=== PATIENT | female | born 1940 | race Caucasian/White ===

== ENCOUNTER 2018-12-08 10:59 | Inpatient (IN) | payer BC ==
--- NOTE | 2018-12-08 11:47 | PDOC ---
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 Per the patient, she states she has been having worsening SOB for the past 3 weeks requiring increase use of nebulizer (denies home O2 use). She states she has had a cough that has been persistent with black production that has been ongoing for 8 days. In addition, she developed pleuritic upper back pain bilaterally throughout the 3 weeks that is sharp in nature, 5/10, worsens with deep breathing and coughs, and is non radiating. Per the patient, she denies lower extremity swelling. She has been on 20 mg of prednisone for the past 3 weeks. Denies chest pain and a stress test (had a previous echo unknown yr that was normal). Denies sick contacts and recent travel. Denies the following: fever, chills, ears/nose/throat pain, nausea, vomiting, abdominal pain, dysuria, hematuria, diarrhea, melena, hematochezia, hx of PE/DVT, hx of recent surgeries , and use of anti-coagulants. Shx None Allergies: meperidine, morphine Meds: prednisone, atorvastatin, hctz, advair, spiriva Social: Denies tobacco, alcohol, and substance abuse. Past History - Past Medical History Allergies/Adverse Reactions: Allergies Allergy/AdvReac Type Severity Reaction Status Date / Time meperidine HCl [From Demerol] Allergy Intermediate Hallucinate Verified 08:44 morphine Allergy Hallucinate Verified 12/09/18 08:44 s Home Medications: Ambulatory Orders Albuterol Sulfate Inhaler - [Ventolin HFA Inhaler -] 1 - 2 inh PO QID PRN Tiotropium On[place] [Spiriva] 1 inh PO DAILY 12/08/18 Albuterol 2.5/Ipratropium 0.5 [Duoneb -] 1 amp NEB RQID amp 12/11/18 Aspirin Coated [Ecotrin -] 81 mg PO DAILY tablet.ec 12/11/18 Azithromycin 500 mg PO DAILY #3 tablet 12/11/18 Guaifenesin Dm [Robitussin Dm -] 10 ml PO Q4H PRN #1 bot 12/11/18 Pantoprazole Sodium 40 mg PO DAILY #30 tablet. 12/11/18 Prednisone 10 mg PO ASDIR #30 tab 12/11/18 Asthma: Yes Cancer: Yes (UTERINE CANCER) COPD: Yes Disorders: Yes (STONES) Hypercholesterolemia: Yes - Surgical History Appendectomy: Yes - Suicide/Smoking/Psychosocial Hx Smoking History: Former smoker Have you smoked in the past 12 months: No If you are a former smoker, when did you quit?: 11 YEARS Information on smoking cessation initiated: No Hx Alcohol Use: No Drug/Substance Use Hx: No Review of Systems - Review of Systems Able to Perform ROS?: Yes Is the patient limited Irish proficient: No Constitutional: No: Chills, Diaphoresis, Fever HEENTM: No: Eye Pain, Recent change in vision, Ear Pain, Throat Swelling, Mouth Pain Respiratory: Yes: Cough, Shortness of Breath. No: SOB with Exertion, Hemoptysis Cardiac (ROS): No: Chest Pain, Lightheadedness, Palpitations, Syncope, Chest Tightness ABD/GI: No: Constipated, Diarrhea, Nausea, Poor Appetite, Poor Fluid Intake, Rectal Bleeding, Vomiting, Tarry Stools : No: Burning, Dysuria, Hematuria, Urgency Musculoskeletal: No: Back Pain, Joint Pain, Neck Pain Integumentary: No: Lesions, Lumps, Pallor, Pruritus, Rash, Sweating Neurological: No: Headache, Numbness, Tremors, Weakness, Ataxia, Dizziness Psychiatric: No: Change in Appetite Endocrine: No: Unexplained Weight Loss Hematologic/Lymphatic: No: Anemia *Physical Exam - Vital Signs Last Vital Signs Temp Pulse Resp BP Pulse Ox 98.2 F 120 H 20 103/68 98 12/08/18 11:13 12/08/18 11:13 12/08/18 11:13 12/08/18 11:13 12/08/18 11:13 - Physical Exam General Appearance: Yes: Nourished, Appropriately Dressed. No: Apparent Distress, Intoxicated HEENT: positive: EOMI, YAMEL, Normal Voice, Symmetrical, Pharynx Normal, Hearing Grossly Normal. negative: Pale Conjunctivae, Scleral Icterus (R), Scleral Icterus (L), Muffled/Hoarse voice, Pharyngeal Erythema, Tonsillar Exudate, Tonsillar Erythema, Nasal Congestion, Rhinorrhea, Sinus Tenderness, Excessive drooling Neck: positive: Trachea midline. negative: Tender Respiratory/Chest: positive: Rapid RR, Wheezing (expiratory bilaterally). negative: Chest Tender, Lungs Clear, Normal Breath Sounds, Respiratory Distress , Accessory Muscle Use, Crackles, Rales, Rhonchi, Stridor, Hyperresonant Cardiovascular: positive: Regular Rhythm, S1, S2, Tachycardia. negative: Systolic Murmur Gastrointestinal/Abdominal: positive: Normal Bowel Sounds, Flat, Soft. negative : Tender Lymphatic: negative: Adenopathy Musculoskeletal: positive: Normal Inspection, Other (right rhomboid tenderness with palpation). negative: CVA Tenderness, Vertebral Tenderness Extremity: positive: Normal Capillary Refill, Normal Inspection, Normal Range of Motion. negative: Tender, Swelling, Calf Tenderness Integumentary: positive: Normal Color, Dry, Warm. negative: Pale, Clammy, Diaphoresis, Rash, Swelling Neurologic: positive: ssis developer II-XII NML intact, Fully Oriented, Alert, Normal Mood/ Affect, Normal Response, Motor Strength 5/5. negative: EOM Palsy, Facial Droop , Sensory Deficit Moderate Sedation - Procedure Monitoring Vital Signs: Procedure Monitoring Vital Signs Temperature 98.2 F 12/08/18 11:13 Pulse Rate 120 H 12/08/18 11:13 Respiratory Rate 20 12/08/18 11:13 Blood Pressure 103/68 12/08/18 11:13 O2 Sat by Pulse Oximetry (%) 98 12/08/18 11:13 Heart Score/ECG Review - ECG Intrepretation Comment:: ventricular rate is 93 bpm, [place] is 124 ms, QTc is 402 ms. QRS is 84 ms. Sinus rhythm with atrial complexes. No ST elevation or depression noted. 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 Initial vitals" Initial Vital Signs Temp Pulse Resp BP Pulse Ox 98.2 F 120 H 20 103/68 98 12/08/18 11:13 12/08/18 11:13 12/08/18 11:13 12/08/18 11:13 12/08/18 11:13 Work up" ddx: copd exacerbation vs CHF vs ACS vs URI vs PNA Laboratory Tests 12/08/18 12/08/18 12:31 12:40 WBC 14.3 H RBC 4.29 Hgb 12.1 Hct 37.5 MCV 87.5 MCH 28.3 MCHC 32.3 RDW 14.5 Plt Count 270 MPV 8.4 Absolute Neuts (auto) 13.2 H Neutrophils % 92.3 H Neutrophils % (Manual) 96.0 H Band Neutrophils % 0.0 Lymphocytes % 5.7 L Lymphocytes % (Manual) 2.0 L Monocytes % 1.7 L Monocytes % (Manual) 2 L Eosinophils % 0.0 Eosinophils % (Manual) 0.0 Basophils % 0.3 Basophils % (Manual) 0.0 Myelocytes % (Man) 0 Promyelocytes % (Man) 0 Blast Cells % (Manual) 0 Nucleated RBC % 0 Metamyelocytes 0 Hypochromia 0 Platelet Estimate Normal Polychromasia 0 Poikilocytosis 0 Anisocytosis 0 Microcytosis 0 Macrocytosis 0 Sodium 135 L Potassium 3.5 Chloride 95 L Carbon Dioxide 31 Anion Gap 9 BUN 18 Creatinine 1.0 Creat Clearance w eGFR 53.35 Random Glucose 147 H Calcium 9.0 Total Bilirubin 0.6 AST 14 L ALT 16 Alkaline Phosphatase 109 Creatine Kinase 58 Troponin I < 0.02 B-Natriuretic Peptide 403.4 Total Protein 7.4 Albumin 3.4 leukocytosis. cxr shows no acute process. patient was given duoneb, antibiotics and solumedrol. will admit for COPD exacerbation. Dispo: Admit *DC/Admit/Observation/Transfer Diagnosis at time of Disposition: COPD exacerbation - Prescriptions - Referrals - Patient Instructions - Post Discharge Activity
[2018-12-08] MEDS ORDERED: MAGNESIUM SULF 50% (8.12 MEQ/2 ML-1 GM VIAL) IVPB ONE (12:06)
[2018-12-08] MEDS ORDERED: methylPREDNISolone NA SUCC 125 MG/2 ML VIAL IVPB ONE (12:06)
[2018-12-08] MEDS ORDERED: ALBUTEROL SO4 2.5/IPRATROPIUM 0.5 INH SOL 3 ML VIAL.NEB. NEB ONE ×2 (12:06→12:13)
[2018-12-08] MEDS ORDERED: MAGNESIUM 1GM/D5W - 2 GM/200 ML IVPB IVPB ONE (12:14)
[2018-12-08] MEDS ORDERED: methylPREDNISolone NA SUCC 125 MG/2 ML VIAL ONE (12:14)
[2018-12-08] MEDS ORDERED: AZITHROMYCIN IVPB 500 MG in DEXTROSE 5%-WATER - 250 ML IVPB ONE (12:15)
--- NOTE | 2018-12-08 12:36 | PDOC ---
Attending Attestation - Resident Resident Name: IsaacCarlos A - ED Attending Attestation I have performed the following: I have examined & evaluated the patient, The case was reviewed & discussed with the resident, I agree w/resident's findings & plan - HPI HPI: 12/08/18 12:33 78-year-old female with history of COPD presents from Dr. Ron's office for follow-up visit of COPD exacerbation that has been worsening for the past 2 or 3 weeks, associated with cough productive of dark sputum, started on steroids without improvement and has been worsening more so over the last few days. Was found to be in acute hypoxic respiratory distress in the office today, referred for admission. Bilateral lung pain that is pleuritic, no fevers or chills or night sweats, denies any chest pain or palpitations. - Physicial Exam PE: 12/08/18 12:34 Tachycardia at triage, 90 on nebulizer seated in stretcher Still tachypnea, afebrile with a normalized O2 sat on nebulizer Oropharynx clear, no stridor Heart is regular slight tachycardia, lungs have diffuse expiratory wheezing with prolonged expiration, no focally decreased breath sounds Abdomen benign No edema or calf tenderness - Medical Decision Making 12/08/18 12:35 78-year-old female with COPD exacerbation in the setting of cough has been worsening for 3 weeks, not improving on oral steroid course at home. Acute hypoxic respiratory distress, rule out underlying infectious process such as pneumonia. Labs, EKG Chest x-ray IV steroids, nebulizers, antibiotics Admit Heart Score/ECG Review #1 ECG reviewed & interpreted by me at: 13:17 General ECG Interpretation: Sinus Rhythm (with single PVC), Normal Rate (93), Normal Intervals (qtc 402, ? LPFB), No acute ischemic changes
[2018-12-08 12:44] LABS: BASO % 0.3 % (0-2.0); HEMATOCRIT 37.5 % (32.4-45.2); HEMOGLOBIN 12.1 GM/dL (10.7-15.3); LYMPH % 5.7 % (8-40); MCH 28.3 pg (25.7-33.7); MCHC 32.3 g/dl (32.0-36.0); MEAN CELL VOLUME 87.5 fl (80-96); MEAN PLT VOLUME 8.4 fl (7.5-11.1); MONO % 1.7 % (3.8-10.2); NEUT % 92.3 % (42.8-82.8); PLATELET COUNT 270 K/MM3 (134-434); RBC 4.29 M/mm3 (3.60-5.2); RDW 14.5 % (11.6-15.6); WHITE BLOOD COUNT 14.3 K/mm3 (4.0-10.0)
[2018-12-08 13:17] LABS: ALBUMIN 3.4 g/dl (3.4-5.0); ALK PHOS 109 U/L (45-117); ANION GAP 9 MMOL/L (8-16); BILIRUBIN,TOTAL 0.6 mg/dL (0.2-1); BLOOD UREA NITROGEN 18 mg/dL (7-18); CHLORIDE 95 mmol/L (98-107); CO2 31 mmol/L (21-32); GLUCOSE,RANDOM 147 mg/dL (74-106); N-TERMINAL BNP 403.4 pg/ml (5-450); POTASSIUM 3.5 mmol/L (3.5-5.1); SGOT/AST 14 U/L (15-37); SGPT/ALT 16 U/L (13-61); SODIUM 135 mmol/L (136-145); TOT PROT 7.4 g/dl (6.4-8.2)
[2018-12-08] MEDS ORDERED: AZITHROMYCIN IVPB 500 MG/250 ML BAG IVPB ONE (13:41)
--- NOTE | 2018-12-08 14:33 | PN ---
Progress Note (short form) - Note Progress Note: PULMONARY CONSULTATION DICTATED 12/08/18 IMP ACUTE HYPOXEMIC RESPIRATORY FAILURE COPD EXACERBATION CHEST PAIN URI PLAN IV STEROIDS INHALED BRONCHODILATORS O2 TO MAINTAIN O2 SAT 90% OR GREATER CHEST CT ABX DR LE Problem List - Problems (1) Acute hypoxemic respiratory failure Code(s): J96.01 - ACUTE RESPIRATORY FAILURE WITH HYPOXIA (2) COPD exacerbation Code(s): J44.1 - CHRONIC OBSTRUCTIVE PULMONARY DISEASE W (ACUTE) EXACERBATION (3) Chest pain Code(s): R07.9 - CHEST PAIN, UNSPECIFIED
[2018-12-08] MEDS ORDERED: ALBUTEROL SO4 0.083% IH SOL 2.5 MG/3 ML VIAL.NEB. NEB PRN (14:37)
[2018-12-08 14:39] LABS: ANISOCYTOSIS 0; MACROCYTOSIS 0; PLATELET ESTIMATE NORMAL
[2018-12-08] MEDS: methylPREDNISolone NA SUCC 40 MG/1 ML VIAL IVPUSH SCH ×2 (15:09→21:00)
--- NOTE | 2018-12-08 15:12 | CONS ---
DATE OF CONSULTATION: 12/08/2018 REFERRING PHYSICIAN: Ramsey Quesada MD The patient is an 78-year-old white female, known to me from previous hospitalization, past medical history of advanced COPD, history of tobacco use, quit 11 years ago, history of uterine CA, admitted to [facility] with 3-week history of increasing shortness of breath, cough, and chest congestion. Patient states for the past 3 weeks, she started noticing increasing shortness of breath and chest congestion. She states that the sputum is productive of ayers sputum. Denies any hemoptysis. The past week or so, she started developing pleuritic upper back pain, sharp in character, increased with inspiration and coughing as well as sneezing. She denies any fevers or chills. She went to Dr. Gtz's office earlier today and was noted to be hypoxic with an O2 saturation in the 80s, at which time she was advised to go to the emergency room. She denies any recent travel. There is no history of occupational exposure to chemicals or fumes. There is no history of DVT or PE in the past. Past medical history, again, includes COPD, uterine CA. SOCIAL HISTORY: History of tobacco use, quit 11 years ago, retired waiter/waitress. REVIEW OF SYSTEMS: Positive shortness of breath, positive cough, positive sputum, positive pleuritic chest pain. No fever, no chills, no hemoptysis, no abdominal pain. No nausea, no vomiting, no lower extremity edema. Medications prior to admission include prednisone, Lipitor, hydrochlorothiazide, Advair, and Spiriva. PHYSICAL EXAMINATION: General: The patient is a well-developed, well-nourished female, awake, alert, currently in no acute distress. Vital Signs: She is afebrile. Blood pressure 103/68. Respiratory rate 20. O2 saturation is 98% on 2 L. HEENT: Normocephalic, atraumatic. Neck: Supple. Heart: Regular, S1, S2. Chest: Scattered bilateral wheezes. Abdomen: Soft. Bowel sounds are positive. Extremities: No cyanosis, edema. LABORATORY DATA: WBC is 14.3, hemoglobin 12.1, hematocrit 37.5, with a platelet count of 270,000. BUN 18, creatinine 1.0. Chest x-ray: No infiltrates and no effusions. IMPRESSION: 1. Acute hypoxemic respiratory failure most likely secondary to acute exacerbation of chronic obstructive pulmonary disease. 2. Chest pain syndrome, most likely musculoskeletal in etiology. 3. History of uterine CA. PLAN: IV steroids, inhaled bronchodilators, supplemental O2, sputum for C&S, antibiotics. Obtain D-dimer, CT scan of the chest without contrast. If elevated D-dimer, will get a CTA. ARIANNE LE M.D. MURIEL/[id number]
[2018-12-08] MEDS ORDERED: ALBUTEROL SO4 2.5/IPRATROPIUM 0.5 INH SOL 3 ML VIAL.NEB. NEB SCH (16:00)
--- NOTE | 2018-12-08 18:09 | EKG ---
Test Reason : Blood Pressure : / mmHG Vent. Rate : 093 BPM Atrial Rate : 093 BPM P-R Int : 124 ms QRS Dur : 084 ms QT Int : 324 ms P-R-T Axes : 074 068 049 degrees QTc Int : 402 ms SINUS RHYTHM WITH PREMATURE ATRIAL COMPLEXES LOW VOLTAGE QRS NONSPECIFIC ST AND T WAVE ABNORMALITY ABNORMAL ECG Confirmed by MD BRIAN, LUPE ([id number]) on 12/08/2018 6:09:37 PM Referred By: Confirmed By:LUPE TORRES MD
--- NOTE | 2018-12-08 18:27 | HP ---
Admitting History and Physical - Admission Chief Complaint: SOB and productive cough worsening over 3 weeks History of Present Illness: Patient is a 78 y/o female with past medical history of COPD. Patient presented to [facility] ED after appointment with pulmonogist Dr. Ron. Patient complain of having productive cough with ayers colored sputum and SOB worsening over 3 weeks. She was started on PO steroids and ABT from PMD but did not feel better. History Source: Patient, Family Member (daughter) Limitations to Obtaining History: No Limitations - Past Medical History Pulmonary: Yes: COPD - Smoking History Smoking history: Former smoker Have you smoked in the past 12 months: No If you are a former smoker, when did you quit?: 11 YEARS - Alcohol/Substance Use Hx Alcohol Use: No - Social History Usual Living Arrangement: Yes: With Spouse ADL: Independent <Vicky Mixon - Last Filed: 12/08/18 19:53> Home Medications <Vicky Mixon - Last Filed: 12/08/18 19:53> <Ramsey Quesada - Last Filed: 12/11/18 21:20> - Allergies Allergies/Adverse Reactions: Allergies Allergy/AdvReac Type Severity Reaction Status Date / Time meperidine HCl [From Demerol] Allergy Intermediate Hallucinate Verified 08:44 morphine Allergy Hallucinate Verified 12/09/18 08:44 s - Home Medications Home Medications: Ambulatory Orders Albuterol Sulfate Inhaler - [Ventolin HFA Inhaler -] 1 - 2 inh PO QID PRN Tiotropium [place] [Spiriva] 1 inh PO DAILY 12/08/18 Albuterol 2.5/Ipratropium 0.5 [Duoneb -] 1 amp NEB RQID amp 12/11/18 Aspirin Coated [Ecotrin -] 81 mg PO DAILY tablet.ec 12/11/18 Azithromycin 500 mg PO DAILY #3 tablet 12/11/18 Guaifenesin Dm [Robitussin Dm -] 10 ml PO Q4H PRN #1 bot 12/11/18 Pantoprazole Sodium 40 mg PO DAILY #30 tablet. 12/11/18 Prednisone 10 mg PO ASDIR #30 tab 12/11/18 Review of Systems - Review of Systems Constitutional: reports: No Symptoms Eyes: reports: No Symptoms HENT: reports: No Symptoms Neck: reports: No Symptoms Cardiovascular: reports: No Symptoms Respiratory: reports: Cough (productive with ayers sputum), SOB Gastrointestinal: reports: No Symptoms Genitourinary: reports: No Symptoms Breasts: reports: No Symptoms Reported Musculoskeletal: reports: No Symptoms Integumentary: reports: No Symptoms Neurological: reports: No Symptoms Endocrine: reports: No Symptoms Hematology/Lymphatic: reports: No Symptoms Psychiatric: reports: No Symptoms <Vicky Mixon - Last Filed: 12/08/18 19:53> Physical Examination Vital Signs: Vital Signs Temperature 97.9 F 12/08/18 16:59 Pulse Rate 93 H 12/08/18 16:59 Respiratory Rate 18 12/08/18 16:59 Blood Pressure 114/59 L 12/08/18 16:59 O2 Sat by Pulse Oximetry (%) 96 12/08/18 16:59 Constitutional: Yes: Well Nourished, Mild Distress Eyes: Yes: Conjunctiva Clear HENT: Yes: Atraumatic Neck: Yes: Supple Cardiovascular: Yes: Regular Rate and Rhythm Respiratory: Yes: On Nasal O2, Wheezes Gastrointestinal: Yes: Normal Bowel Sounds, Soft, Tenderness (epigastric) Musculoskeletal: Yes: WNL Extremities: Yes: WNL Edema: No Integumentary: Yes: WNL Neurological: Yes: Alert, Oriented Psychiatric: Yes: Alert, Oriented Labs: CBC, TORI 12/08/18 12:31 12/08/18 12:40 <Vicky Mixon - Last Filed: 12/08/18 19:53> Vital Signs: Vital Signs Temperature 97.9 F 12/11/18 08:15 Pulse Rate 85 12/11/18 08:15 Respiratory Rate 18 12/11/18 08:15 Blood Pressure 148/92 12/11/18 08:15 O2 Sat by Pulse Oximetry (%) 93 L 12/11/18 09:00 Labs: CBC, TORI 12/09/18 06:30 12/09/18 06:30 <Ramsey Quesada - Last Filed: 12/11/18 21:20> Imaging - Results Chest X-ray: Report Reviewed (No acute chest pathology) EKG: Report Reviewed <Vicky Mixon - Last Filed: 12/08/18 19:53> Problem List - Problems (1) Acute hypoxemic respiratory failure Code(s): J96.01 - ACUTE RESPIRATORY FAILURE WITH HYPOXIA (2) COPD exacerbation Code(s): J44.1 - CHRONIC OBSTRUCTIVE PULMONARY DISEASE W (ACUTE) EXACERBATION (3) Chest pain Code(s): R07.9 - CHEST PAIN, UNSPECIFIED <Vicky Mixon - Last Filed: 12/08/18 19:53> Assessment/Plan -cardiology consult for SOB -Pulm consult for COPD exacerbation -GI consult for epigastric tenderness -albuterol and duoneb tx PRN -IV methylprednisone -O2 via NC, keep SpO2 >90% -regular diet -dvt ppx -OOB to chair as tolerated <Vicky Mixon - Last Filed: 12/08/18 19:53> I HAVE EXAMINED THE ABOVE PATIENT AND I AGREE WITH THIS NOTE <Ramsey Quesada - Last Filed: 12/11/18 21:20>
[2018-12-08 20:34] VITALS: BMI 24.5
[2018-12-09] MEDS: methylPREDNISolone NA SUCC 40 MG/1 ML VIAL IVPUSH SCH ×4 (02:40→21:51)
[2018-12-09 08:06] LABS: HEMATOCRIT 37.7 % (32.4-45.2); HEMOGLOBIN 12.9 GM/dL (10.7-15.3); MCH 29.8 pg (25.7-33.7); MCHC 34.1 g/dl (32.0-36.0); MEAN CELL VOLUME 87.5 fl (80-96); MEAN PLT VOLUME 8.9 fl (7.5-11.1); PLATELET COUNT 299 K/MM3 (134-434); RBC 4.31 M/mm3 (3.60-5.2); RDW 14.9 % (11.6-15.6); WHITE BLOOD COUNT 9.9 K/mm3 (4.0-10.0)
[2018-12-09 08:23] LABS: ALBUMIN 3.6 g/dl (3.4-5.0); ALK PHOS 112 U/L (45-117); ANION GAP 5 MMOL/L (8-16); BILIRUBIN,TOTAL 0.5 mg/dL (0.2-1); BLOOD UREA NITROGEN 26 mg/dL (7-18); CALCIUM 9.3 mg/dL (8.5-10.1); CHLORIDE 98 mmol/L (98-107); CO2 34 mmol/L (21-32); CREATININE 0.9 mg/dL (0.55-1.3); GLUCOSE,RANDOM 120 mg/dL (74-106); POTASSIUM 4.2 mmol/L (3.5-5.1); SGOT/AST 13 U/L (15-37); SGPT/ALT 17 U/L (13-61); SODIUM 137 mmol/L (136-145); TOT PROT 7.8 g/dl (6.4-8.2)
--- NOTE | 2018-12-09 08:33 | PN ---
Progress Note, Physician - Current Medication List Current Medications: Active Medications Albuterol Sulfate (Ventolin 0.083% Nebulizer Soln -) 1 amp NEB Q4H PRN PRN Reason: SHORT OF BREATH/WHEEZING Aspirin (Ecotrin -) 81 mg PO DAILY [facility] Methylprednisolone Sodium Succinate (Solu-Medrol -) 40 mg IVPUSH Q6H-IV [facility] Last Admin: 12/09/18 02:40 Dose: 40 mg Tiotropium [place] (Spiriva Respimat) 2 puff IH DAILY [facility] - Objective Vital Signs: Vital Signs Temperature 97.3 F L 12/09/18 08:30 Pulse Rate 88 12/09/18 08:30 Respiratory Rate 18 12/09/18 08:30 Blood Pressure 135/70 12/09/18 08:30 O2 Sat by Pulse Oximetry (%) 96 12/08/18 16:59 Cardiovascular: Yes: Regular Rate and Rhythm Respiratory: Yes: Diminished, Rhonchi Gastrointestinal: Yes: Normal Bowel Sounds, Soft Labs: CBC, BMP 12/09/18 06:30 12/09/18 06:30 Problem List - Problems (1) COPD exacerbation Assessment/Plan: -IV Steroids -Nebs -Pulm on case Code(s): J44.1 - CHRONIC OBSTRUCTIVE PULMONARY DISEASE W (ACUTE) EXACERBATION (2) Pain in scapula Assessment/Plan: -ekg and CE -Cardiology Code(s): M89.8X1 - OTHER SPECIFIED DISORDERS OF BONE, SHOULDER (3) D-dimer, elevated Assessment/Plan: -CTA Code(s): R79.89 - OTHER SPECIFIED ABNORMAL FINDINGS OF BLOOD CHEMISTRY
[2018-12-09] MEDS ORDERED: PT OWN MED DRAWER 7, Y5N ONE (09:35)
[2018-12-09] MEDS: ASPIRIN COATED 81 MG TABLET.EC PO SCH (09:36)
--- NOTE | 2018-12-09 09:54 | EKG ---
Test Reason : Blood Pressure : / mmHG Vent. Rate : 103 BPM Atrial Rate : 103 BPM P-R Int : 116 ms QRS Dur : 080 ms QT Int : 320 ms P-R-T Axes : 078 076 262 degrees QTc Int : 419 ms SINUS TACHYCARDIA WITH PREMATURE SUPRAVENTRICULAR COMPLEXES LOW VOLTAGE QRS ABNORMAL ECG WHEN COMPARED WITH ECG OF 08-DEC-2018 13:17, INVERTED T WAVES HAVE REPLACED NONSPECIFIC T WAVE ABNORMALITY IN INFERIOR LEADS Confirmed by GABBI VILLAGOMEZ, ERIN ([id number]) on 12/09/2018 9:54:28 AM Referred By: Jennifer NDIAYE Confirmed By:ERIN SEO MD
[2018-12-09] MEDS ORDERED: TIOTROPIUM BROMIDE 2.5 MCG (SPIRIVA) RESPIMAT INHALER IH SCH (10:00)
--- NOTE | 2018-12-09 12:18 | PN ---
Progress Note (short form) - Note Progress Note: I was consulted to evaluate 78 y/o female patient with epigastric pain on palpation. At bedside this morning patient states she is feeling better and would like to hold off on consulting GI for her pain.
--- NOTE | 2018-12-09 14:17 | PN ---
Progress Note (short form) - Note Progress Note: PULMONARY Breathing better but now with cough productive of yellow sputum. No fevers or chills. CT chest showing RLL infiltrate. Vital Signs Period Temp Pulse Resp BP Sys/Maxwell Pulse Ox Last 24 Hr 97.3 F-98.0 F 73-95 18-20 114-158/59-80 96-97 Intake & Output 12/06/18 12/07/18 12/08/18 12/09/18 23:59 23:59 23:59 23:59 Intake Total 250 Balance 250 Weight 64.864 kg Gen: NAD at rest Heart: RRR Lung: scattered rhonchi, right basilar rales Abd: soft, nontender Ext: no edema CBC, BMP 12/09/18 06:30 12/09/18 06:30 Active Medications Albuterol Sulfate (Ventolin 0.083% Nebulizer Soln -) 1 amp NEB Q4H PRN PRN Reason: SHORT OF BREATH/WHEEZING Aspirin (Ecotrin -) 81 mg PO DAILY [facility] Last Admin: 12/09/18 09:36 Dose: 81 mg Methylprednisolone Sodium Succinate (Solu-Medrol -) 40 mg IVPUSH Q6H-IV [facility] Last Admin: 12/09/18 08:37 Dose: 40 mg Tiotropium [place] (Spiriva Respimat) 2 puff IH DAILY [facility] Last Admin: 12/09/18 09:36 Dose: 2 puff A/P Acute COPD Exacerbation RLL Pneumonia - continue medrol at current dose - inhaled bronchodilators standing and PRN - O2 to keep SpO2 >90% - will start antibiotics - DVT prophylaxis
[2018-12-09] MEDS ORDERED: DEXTROSE 5%-WATER - 50 ML IVPB ONE (14:51)
[2018-12-09] MEDS ORDERED: cefTRIAXone SODIUM 1 GM VIAL ONE (14:51)
[2018-12-09] MEDS: ENOXAPARIN NA (PORCINE) 40 MG/0.4 ML DISP.SYRIN SQ SCH (14:55)
[2018-12-09] MEDS: CEFTRIAXONE 1 GM in DEXTROSE 5%-WATER - 50 ML IVPB SCH (14:55)
[2018-12-09] MEDS ORDERED: PANTOPRAZOLE SODIUM 40 MG in SODIUM CHLORIDE 100 ML IVPB SCH (14:59)
[2018-12-09] MEDS: ALBUTEROL SO4 2.5/IPRATROPIUM 0.5 INH SOL 3 ML VIAL.NEB. NEB SCH ×2 (15:01→21:10)
[2018-12-09] MEDS ORDERED: BENZOCAINE/MENTH/CETYLPYRD CL 1 EACH LOZENGE MM PRN (15:02)
[2018-12-09] MEDS ORDERED: guaiFENesin/D-METHORPHAN HB 10 ML UNIT-DOSE CUPS PO PRN (15:02)
--- NOTE | 2018-12-09 15:04 | PN ---
Progress Note, Physician Chief Complaint: RLL pneumonia COPD exacerbation History of Present Illness: NAD Breathing better still coughing Seen by Pulmonary was complaining of epigastric pain yesterday, which improved- joeyley 2/2 to steroids- should be on PPI-will start Started on IV abx - Current Medication List Current Medications: Active Medications Albuterol Sulfate (Ventolin 0.083% Nebulizer Soln -) 1 amp NEB Q4H PRN PRN Reason: SHORT OF BREATH/WHEEZING Albuterol/Ipratropium (Duoneb -) 1 amp NEB RQID [facility] Aspirin (Ecotrin -) 81 mg PO DAILY [facility] Last Admin: 12/09/18 09:36 Dose: 81 mg Enoxaparin Sodium (Lovenox -) 40 mg SQ DAILY [facility] Last Admin: 12/09/18 14:55 Dose: 40 mg Ceftriaxone Sodium 1 gm/ (Dextrose) 50 mls @ 100 mls/hr IVPB DAILY [facility] Last Admin: 12/09/18 14:55 Dose: 100 mls/hr Azithromycin (Zithromax 500mg Ivpb (Pre-Docked)) 500 mg in 250 mls @ 250 mls/ hr IVPB DAILY [facility] Methylprednisolone Sodium Succinate (Solu-Medrol -) 40 mg IVPUSH Q6H-IV [facility] Last Admin: 12/09/18 14:55 Dose: 40 mg - Objective Vital Signs: Vital Signs Temperature 98.6 F 12/09/18 14:52 Pulse Rate 80 12/09/18 14:52 Respiratory Rate 18 12/09/18 14:52 Blood Pressure 121/72 12/09/18 14:52 O2 Sat by Pulse Oximetry (%) 97 12/09/18 09:00 Constitutional: Yes: Well Nourished, No Distress, Calm Cardiovascular: Yes: Regular Rate and Rhythm Respiratory: Yes: On Nasal O2, SOB on Exertion Gastrointestinal: Yes: Normal Bowel Sounds, Soft Musculoskeletal: Yes: WNL Extremities: Yes: WNL Edema: No Peripheral Pulses WNL: Yes Neurological: Yes: Alert, Oriented Psychiatric: Yes: Alert, Oriented Labs: CBC, BMP 12/09/18 06:30 12/09/18 06:30 Problem List - Problems (1) Pneumonia Assessment/Plan: -on CT chest -Seen by pulmonary -IV medrol -IV abx -afebrile -no leukocytosis -bronchodilators -Robitussin DM PRN -Cepacol lozenges Code(s): J18.9 - PNEUMONIA, UNSPECIFIED ORGANISM (2) COPD exacerbation Assessment/Plan: -on CT chest -Seen by pulmonary -IV medrol -IV abx -afebrile -no leukocytosis -bronchodilators -Robitussin DM PRN -Cepacol lozenges Code(s): J44.1 - CHRONIC OBSTRUCTIVE PULMONARY DISEASE W (ACUTE) EXACERBATION Assessment/Plan See problem list DVT prophylaxis PPI
--- NOTE | 2018-12-09 15:11 | CON.CARD ---
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 She states she has been having worsening SOB for the past 3 weeks requiring increase use of nebulizer. She denied chest pain presently but did state that she had "rib pain" and back pain secondary to coughing. EKG from 12/09/18 showed Sinus Tach at [address] depressions in the inferior leads. These are new compared with the previous EKG. - Past Medical History Pulmonary: Yes: COPD - Alcohol/Substance Use Hx Alcohol Use: No - Smoking History Smoking history: Former smoker Have you smoked in the past 12 months: No If you are a former smoker, when did you quit?: 11 YEARS - Social History ADL: Independent Home Medications - Allergies Allergies/Adverse Reactions: Allergies Allergy/AdvReac Type Severity Reaction Status Date / Time meperidine HCl [From Demerol] Allergy Intermediate Hallucinate Verified 08:44 morphine Allergy Hallucinate Verified 12/09/18 08:44 s - Home Medications Home Medications: Ambulatory Orders Albuterol Sulfate Inhaler - [Ventolin Hfa Inhaler -] 1 - 2 inh PO QID PRN Prednisone 10 mg PO DAILY 12/08/18 Tiotropium [place] [Spiriva] 1 inh PO DAILY 12/08/18 Vital Signs: Vital Signs Temperature 98.6 F 12/09/18 14:52 Pulse Rate 80 12/09/18 14:52 Respiratory Rate 18 12/09/18 14:52 Blood Pressure 121/72 12/09/18 14:52 O2 Sat by Pulse Oximetry (%) 97 12/09/18 09:00 Constitutional: Yes: No Distress Eyes: Yes: WNL HENT: Yes: WNL Neck: Yes: WNL Respiratory: Yes: CTA Bilaterally Gastrointestinal: Yes: Normal Bowel Sounds Cardiovascular: Yes: Regular Rate and Rhythm (NL S1S2 no MRHG) Extremities: Yes: WNL Edema: No Neurological: Yes: Alert, Oriented - Other Data Labs, Other Data: CBC, BMP 12/09/18 06:30 12/09/18 06:30 Troponin, BNP 12/09/18 12/09/18 06:30 12:23 Troponin I < 0.02 < 0.02 Troponin, BNP 12/09/18 12/09/18 06:30 12:23 Troponin I < 0.02 < 0.02 Assessment/Plan 78 year old F with COPD 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 She states she has been having worsening SOB for the past 3 weeks requiring increase use of nebulizer. She denied chest pain presently but did state that she had "rib pain " and back pain secondary to coughing. EKG from 12/09/18 showed Sinus Tach at [address] depressions in the inferior leads. These are new compared with the previous EKG. Chest pain Non cardiac sounding, however todays EKG does have ST depressions in the inferior leads. Trops negative Would obtain an echocardiogram to evaluate wall motion. Continue aspirin. Would continue to trend troponins given EKG change Will follow with you.
--- NOTE | 2018-12-09 15:23 | ECHO ---
Name: PAULA MARISCAL Exam:Adult Echocardiogram Study Date: 12/09/2018 01:39 PM Age: 78 yrs Reason For Study: ABN EKG Height: 64 in Weight: 143 lb BSA: 1.7 m2 MMode/2D Measurements & Calculations IVSd: 0.83 cm Ao root diam: 2.5 cm LVIDd: 5.4 cm LA dimension: 3.6 cm LVIDs: 3.5 cm ACS: 1.5 cm LVPWd: 0.89 cm IVSs: 1.1 cm LVPWs: 0.92 cm EDV(Teich): 139.6 ml ESV(Teich): 50.6 ml Doppler Measurements & Calculations MV E max [place]: 94.0 cm/sec Ao V2 max: 114.8 cm/sec MV A max [place]: 98.2 cm/sec Ao max P.3 mmHg MV E/A: 0.96 Ao V2 mean: 86.0 cm/sec Ao mean P.2 mmHg Ao V2 VTI: 24.2 cm MR max [place]: 369.6 cm/sec TR max [place]: 284.1 cm/sec MR max P.6 mmHg TR max P.3 mmHg Med Peak E' [place]: 5.8 cm/sec Med E/e': 16.3 Lat Peak E' [place]: 5.5 cm/sec Lat E/e': 17.2 Procedure A two-dimensional transthoracic echocardiogram with color flow and Doppler was performed. The study w as technically difficult with many images being suboptimal in quality. Left Ventricle The left ventricular size, thickness and function are normal. The left ventricle is not well visualiz ed. The left ventricular ejection fraction is normal. The transmitral spectral Doppler flow pattern is normal for age. Regional wall motion abnormalities cannot be excluded due to limited visualization. Right Ventricle The right ventricle is not well visualized. Atria The left atrium is mildly dilated. Right atrial size is normal. Mitral Valve There is mild mitral valve thickening. There is no mitral valve stenosis. There is trace to mild mitr al regurgitation. Tricuspid Valve The tricuspid valve is normal in structure and function. There is no tricuspid stenosis. There is Tra ce to mild tricuspid regurgitation. Right ventricular systolic pressure is elevated at 40-50mmHg. Aortic Valve The aortic valve is not well visualized. No hemodynamically significant valvular aortic stenosis. No aortic regurgitation is present. Pulmonic Valve The pulmonic valve is not well visualized. Great Vessels The aortic root is normal size. Pericardium/Pleura Small pericardial effusion (<1cm). Interpretation Summary The study was technically difficult with many images being suboptimal in quality. The left ventricular size, thickness and function are normal The left ventricular ejection fraction is normal. Regional wall motion abnormalities cannot be excluded due to limited visualization. The left atrium is mildly dilated. There is Trace to mild tricuspid regurgitation. Right ventricular systolic pressure is elevated at 40-50mmHg. Small pericardial effusion (<1cm) The left ventricle is not well visualized. The right ventricle is not well visualized. There is trace to mild mitral regurgitation. The transmitral spectral Doppler flow pattern is normal for age. MD Marcos Reese 12/09/2018 03:22 PM
[2018-12-09] MEDS ORDERED: SODIUM CHLORIDE 100 ML IVPB ONE (16:06)
[2018-12-09] MEDS ORDERED: PANTOPRAZOLE SODIUM 40 MG VIAL ONE (16:06)
[2018-12-09] MEDS: AZITHROMYCIN IVPB 500 MG/250 ML BAG IVPB SCH (16:12)
[2018-12-09] MEDS ORDERED: PANTOPRAZOLE SODIUM 40 MG in SODIUM CHLORIDE 100 ML IVPUSH SCH (18:51)
[2018-12-10] MEDS: methylPREDNISolone NA SUCC 40 MG/1 ML VIAL IVPUSH SCH ×3 (03:02→17:45)
[2018-12-10] MEDS: ALBUTEROL SO4 2.5/IPRATROPIUM 0.5 INH SOL 3 ML VIAL.NEB. NEB SCH ×5 (07:35→20:31)
[2018-12-10] MEDS ORDERED: cefTRIAXone SODIUM 1 GM VIAL ONE ×2 (08:57→09:12)
[2018-12-10] MEDS ORDERED: DEXTROSE 5%-WATER - 50 ML IVPB ONE ×2 (08:58→09:12)
[2018-12-10] MEDS: ASPIRIN COATED 81 MG TABLET.EC PO SCH (09:13)
[2018-12-10] MEDS: CEFTRIAXONE 1 GM in DEXTROSE 5%-WATER - 50 ML IVPB SCH (09:13)
[2018-12-10] MEDS: ENOXAPARIN NA (PORCINE) 40 MG/0.4 ML DISP.SYRIN SQ SCH (09:24)
[2018-12-10] MEDS ORDERED: PANTOPRAZOLE SODIUM 40 MG VIAL IVPUSH SCH (10:00)
--- NOTE | 2018-12-10 10:13 | PN ---
Progress Note (short form) - Note Progress Note: PULMONARY Breathing better and chest feels looser. No fevers or chills. Vital Signs Period Temp Pulse Resp BP Sys/Maxwell Pulse Ox Last 24 Hr 97.2 F-98.6 F 74-100 16-20 106-123/63-75 97 Gen: NAD at rest Heart: RRR Lung: less rhonchi, right base rales Abd: soft, nontender Ext: no edema CBC, BMP 12/09/18 06:30 12/09/18 06:30 Active Medications Albuterol Sulfate (Ventolin 0.083% Nebulizer Soln -) 1 amp NEB Q4H PRN PRN Reason: SHORT OF BREATH/WHEEZING Albuterol/Ipratropium (Duoneb -) 1 amp NEB RQID [facility] Last Admin: 12/10/18 07:35 Dose: 1 amp Aspirin (Ecotrin -) 81 mg PO DAILY [facility] Last Admin: 12/10/18 09:13 Dose: 81 mg Benzocaine/Menthol (Cepacol Lozenge -) 1 each MM PRN PRN PRN Reason: SORE THROAT Enoxaparin Sodium (Lovenox -) 40 mg SQ DAILY [facility] Last Admin: 12/10/18 09:24 Dose: 40 mg Guaifenesin (Robitussin Dm -) 10 ml PO Q4H PRN PRN Reason: COUGH Last Admin: 12/09/18 21:51 Dose: 10 ml Ceftriaxone Sodium 1 gm/ (Dextrose) 50 mls @ 100 mls/hr IVPB DAILY [facility] Last Admin: 12/10/18 09:13 Dose: 100 mls/hr Azithromycin (Zithromax 500mg Ivpb (Pre-Docked)) 500 mg in 250 mls @ 250 mls/ hr IVPB DAILY [facility] Last Admin: 12/09/18 16:12 Dose: 250 mls/hr Methylprednisolone Sodium Succinate (Solu-Medrol -) 40 mg IVPUSH Q6H-IV [facility] Last Admin: 12/10/18 09:13 Dose: 40 mg Pantoprazole Sodium (Protonix Iv) 40 mg IVPUSH DAILY [facility] Last Admin: 12/10/18 09:13 Dose: 40 mg A/P Chronic Hypoxic Respiratory Failure Acute COPD Exacerbation RLL Pneumonia - will decrease medrol to q8h - if continues to improve, can likely change steroids to PO prednisone 40mg daily and taper as outpt - inhaled bronchodilators standing and PRN - O2 to keep SpO2 >90% - continue antibiotics, can also change to PO in AM if continues to improve - DVT prophylaxis
[2018-12-10] MEDS: AZITHROMYCIN IVPB 500 MG/250 ML BAG IVPB SCH (10:17)
[2018-12-10] MEDS ORDERED: ALBUTEROL SO4 0.083% IH SOL 2.5 MG/3 ML VIAL.NEB. NEB PRN (11:42)
[2018-12-10] MEDS ORDERED: BENZOCAINE/MENTH/CETYLPYRD CL 1 EACH LOZENGE MM PRN (11:42)
[2018-12-10] MEDS ORDERED: guaiFENesin/D-METHORPHAN HB 10 ML UNIT-DOSE CUPS PO PRN (11:42)
--- NOTE | 2018-12-10 11:55 | EKG ---
Test Reason : Blood Pressure : / mmHG Vent. Rate : 100 BPM Atrial Rate : 100 BPM P-R Int : 114 ms QRS Dur : 076 ms QT Int : 336 ms P-R-T Axes : 073 069 093 degrees QTc Int : 433 ms NORMAL SINUS RHYTHM LOW VOLTAGE QRS NONSPECIFIC ST ABNORMALITY ABNORMAL ECG WHEN COMPARED WITH ECG OF 09-DEC-2018 09:48, PREMATURE SUPRAVENTRICULAR COMPLEXES ARE NO LONGER PRESENT T WAVE INVERSION NO LONGER EVIDENT IN INFERIOR LEADS NONSPECIFIC T WAVE ABNORMALITY, IMPROVED IN LATERAL LEADS Confirmed by TIFFANI ASH MD ([id number]) on 12/10/2018 11:54:42 AM Referred By: Confirmed By:TIFFANI ASH MD
--- NOTE | 2018-12-10 12:13 | PN ---
Progress Note, Physician Chief Complaint: RLL pneumonia COPD exacerbation History of Present Illness: NAD Breathing better still coughing Seen by Pulmonary on IV abx Uses Oxygen at home - Current Medication List Current Medications: Active Medications Albuterol Sulfate (Ventolin 0.083% Nebulizer Soln -) 1 amp NEB Q4H PRN PRN Reason: SHORT OF BREATH/WHEEZING Albuterol/Ipratropium (Duoneb -) 1 amp NEB RQID [facility] Aspirin (Ecotrin -) 81 mg PO DAILY [facility] Benzocaine/Menthol (Cepacol Lozenge -) 1 each MM PRN PRN PRN Reason: SORE THROAT Enoxaparin Sodium (Lovenox -) 40 mg SQ DAILY [facility] Guaifenesin (Robitussin Dm -) 10 ml PO Q4H PRN PRN Reason: COUGH Azithromycin (Zithromax 500mg Ivpb (Pre-Docked)) 500 mg in 250 mls @ 250 mls/ hr IVPB DAILY [facility] Ceftriaxone Sodium 1 gm/ (Dextrose) 50 mls @ 100 mls/hr IVPB DAILY [facility] Methylprednisolone Sodium Succinate (Solu-Medrol -) 40 mg IVPUSH Q8H-IV [facility] Pantoprazole Sodium (Protonix Iv) 40 mg IVPUSH DAILY [facility] - Objective Vital Signs: Vital Signs Temperature 97.8 F 12/10/18 08:32 Pulse Rate 82 12/10/18 08:32 Respiratory Rate 16 12/10/18 08:32 Blood Pressure 112/63 12/10/18 08:32 O2 Sat by Pulse Oximetry (%) 97 12/09/18 21:00 Constitutional: Yes: Well Nourished, No Distress, Calm Cardiovascular: Yes: Regular Rate and Rhythm Respiratory: Yes: Regular, On Nasal O2, Rales (BLL), SOB on Exertion Gastrointestinal: Yes: Normal Bowel Sounds, Soft Musculoskeletal: Yes: WNL Extremities: Yes: WNL Edema: No Peripheral Pulses WNL: Yes Neurological: Yes: Alert, Oriented Psychiatric: Yes: Alert, Oriented Labs: CBC, BMP 12/09/18 06:30 12/09/18 06:30 Problem List - Problems (1) Pneumonia Assessment/Plan: -on CT chest -Seen by pulmonary -IV medrol decreased to Q8H -IV abx -afebrile -no leukocytosis -bronchodilators -Robitussin DM PRN -Cepacol lozenges Code(s): J18.9 - PNEUMONIA, UNSPECIFIED ORGANISM (2) COPD exacerbation Assessment/Plan: -on CT chest -Seen by pulmonary -IV medrol decreased to Q8H -IV abx -afebrile -no leukocytosis -bronchodilators -Robitussin DM PRN -Cepacol lozenges Code(s): J44.1 - CHRONIC OBSTRUCTIVE PULMONARY DISEASE W (ACUTE) EXACERBATION Assessment/Plan See problem list DVT prophylaxis PPI Has O2 at home
--- NOTE | 2018-12-10 16:02 | PN ---
Progress Note, Physician History of Present Illness: ' This is an 78 year old F with COPD presents from her [employer]'s office ( Dr. 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 She states she has been having worsening SOB for the past 3 weeks requiring increase use of nebulizer. She denied chest pain presently but did state that she had "rib pain" and back pain secondary to coughing. EKG from 12/09/18 showed Sinus Tach at [address] depressions in the inferior leads. These are new compared with the previous EKG. EKG 12/10/18 with resolution of the ST changes. 12/10/18 Patient symptomatically improved. - Current Medication List Current Medications: Active Medications Albuterol Sulfate (Ventolin 0.083% Nebulizer Soln -) 1 amp NEB Q4H PRN PRN Reason: SHORT OF BREATH/WHEEZING Albuterol/Ipratropium (Duoneb -) 1 amp NEB RQID [facility] Last Admin: 12/10/18 11:30 Dose: Not Given Aspirin (Ecotrin -) 81 mg PO DAILY [facility] Benzocaine/Menthol (Cepacol Lozenge -) 1 each MM PRN PRN PRN Reason: SORE THROAT Enoxaparin Sodium (Lovenox -) 40 mg SQ DAILY [facility] Guaifenesin (Robitussin Dm -) 10 ml PO Q4H PRN PRN Reason: COUGH Azithromycin (Zithromax 500mg Ivpb (Pre-Docked)) 500 mg in 250 mls @ 250 mls/ hr IVPB DAILY [facility] Ceftriaxone Sodium 1 gm/ (Dextrose) 50 mls @ 100 mls/hr IVPB DAILY [facility] Methylprednisolone Sodium Succinate (Solu-Medrol -) 40 mg IVPUSH Q8H-IV [facility] Pantoprazole Sodium (Protonix Iv) 40 mg IVPUSH DAILY [facility] - Objective Vital Signs: Vital Signs Temperature 98.4 F 12/10/18 15:21 Pulse Rate 86 12/10/18 15:21 Respiratory Rate 18 12/10/18 15:21 Blood Pressure 117/65 12/10/18 15:21 O2 Sat by Pulse Oximetry (%) 97 12/10/18 09:00 Constitutional: Yes: No Distress Eyes: Yes: WNL HENT: Yes: WNL Cardiovascular: Yes: Regular Rate and Rhythm (NL S1 S2, no MRHG) Respiratory: Yes: Diminished (Minimally bilaterally) Gastrointestinal: Yes: Soft Extremities: Yes: WNL Edema: No Neurological: Yes: Alert, Oriented Labs: CBC, BMP 12/09/18 06:30 12/09/18 06:30 Assessment/Plan 78 year old F with COPD presents from her [employer]'s office (Dr. 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 She states she has been having worsening SOB for the past 3 weeks requiring increase use of nebulizer. She denied chest pain presently but did state that she had "rib pain " and back pain secondary to coughing. EKG from 12/09/18 showed Sinus Tach at [address] depressions in the inferior leads. These are new compared with the previous EKG. EKG 12/10/18 with resolution of the ST changes. 12/10/18 Patient symptomatically improved. Chest pain No further episodes Trops negative Echocardiogram noted normal LV function with elevated right sided pressures consistent with COPD Continue aspirin. Can do out patient stress testing with COPD exacerbation has resolved
[2018-12-11] MEDS: methylPREDNISolone NA SUCC 40 MG/1 ML VIAL IVPUSH SCH ×2 (01:44→10:11)
[2018-12-11] MEDS: ALBUTEROL SO4 2.5/IPRATROPIUM 0.5 INH SOL 3 ML VIAL.NEB. NEB SCH ×2 (07:56→11:51)
[2018-12-11] MEDS ORDERED: CEFTRIAXONE 1 GM in DEXTROSE 5%-WATER - 50 ML IVPB SCH (10:00)
[2018-12-11] MEDS ORDERED: AZITHROMYCIN IVPB 500 MG/250 ML BAG IVPB SCH (10:00)
[2018-12-11] MEDS ORDERED: ENOXAPARIN NA (PORCINE) 40 MG/0.4 ML DISP.SYRIN SQ SCH (10:00)
[2018-12-11] MEDS ORDERED: PANTOPRAZOLE SODIUM 40 MG VIAL IVPUSH SCH (10:00)
[2018-12-11] MEDS ORDERED: ASPIRIN COATED 81 MG TABLET.EC PO SCH (10:00)
[2018-12-11] MEDS ORDERED: PT OWN MED DRAWER 7, Y5N ONE (10:05)
[2018-12-11] MEDS ORDERED: DEXTROSE 5%-WATER - 50 ML IVPB ONE (10:05)
[2018-12-11] MEDS ORDERED: cefTRIAXone SODIUM 1 GM VIAL ONE (10:05)
--- NOTE | 2018-12-11 10:44 | PN ---
Progress Note, Physician Chief Complaint: RLL pneumonia COPD exacerbation History of Present Illness: NAD Feeling and breathing much better, self ambulatory Seen by Pulmonary on IV abx Uses Oxygen at home - Current Medication List Current Medications: Active Medications Albuterol Sulfate (Ventolin 0.083% Nebulizer Soln -) 1 amp NEB Q4H PRN PRN Reason: SHORT OF BREATH/WHEEZING Albuterol/Ipratropium (Duoneb -) 1 amp NEB RQID [facility] Last Admin: 12/11/18 07:56 Dose: 1 amp Aspirin (Ecotrin -) 81 mg PO DAILY [facility] Last Admin: 12/11/18 10:07 Dose: 81 mg Benzocaine/Menthol (Cepacol Lozenge -) 1 each MM PRN PRN PRN Reason: SORE THROAT Enoxaparin Sodium (Lovenox -) 40 mg SQ DAILY [facility] Last Admin: 12/11/18 10:12 Dose: 40 mg Guaifenesin (Robitussin Dm -) 10 ml PO Q4H PRN PRN Reason: COUGH Last Admin: 12/11/18 06:37 Dose: 10 ml Azithromycin (Zithromax 500mg Ivpb (Pre-Docked)) 500 mg in 250 mls @ 250 mls/ hr IVPB DAILY [facility] Ceftriaxone Sodium 1 gm/ (Dextrose) 50 mls @ 100 mls/hr IVPB DAILY [facility] Last Admin: 12/11/18 10:07 Dose: 100 mls/hr Methylprednisolone Sodium Succinate (Solu-Medrol -) 40 mg IVPUSH Q8H-IV [facility] Last Admin: 12/11/18 10:11 Dose: 40 mg Pantoprazole Sodium (Protonix Iv) 40 mg IVPUSH DAILY [facility] Last Admin: 12/11/18 10:08 Dose: 40 mg - Objective Vital Signs: Vital Signs Temperature 97.6 F 12/11/18 06:37 Pulse Rate 84 12/11/18 06:37 Respiratory Rate 20 12/11/18 06:37 Blood Pressure 122/80 12/11/18 06:37 O2 Sat by Pulse Oximetry (%) 95 12/10/18 22:00 Constitutional: Yes: Well Nourished, No Distress, Calm Cardiovascular: Yes: Regular Rate and Rhythm Respiratory: Yes: Diminished, On Nasal O2, SOB on Exertion Gastrointestinal: Yes: Normal Bowel Sounds, Soft Musculoskeletal: Yes: WNL Extremities: Yes: WNL Edema: No Peripheral Pulses WNL: Yes Neurological: Yes: Alert, Oriented Psychiatric: Yes: Alert, Oriented Labs: CBC, BMP 12/09/18 06:30 12/09/18 06:30 Problem List - Problems (1) Pneumonia Assessment/Plan: -on CT chest -Seen by pulmonary -IV medrol decreased to Q8H -Received 4 days of rocephin+ 3 days of Azithromycin 500 mg -afebrile -no leukocytosis -bronchodilators -Robitussin DM PRN -Cepacol lozenges Code(s): J18.9 - PNEUMONIA, UNSPECIFIED ORGANISM (2) COPD exacerbation Assessment/Plan: -on CT chest -Seen by pulmonary -IV medrol decreased to Q8H -Received 4 days of rocephin+ 3 days of Azithromycin 500 mg -afebrile -no leukocytosis -bronchodilators -Robitussin DM PRN -Cepacol lozenges Code(s): J44.1 - CHRONIC OBSTRUCTIVE PULMONARY DISEASE W (ACUTE) EXACERBATION Assessment/Plan See problem list DVT prophylaxis PPI Has O2 at home D/C home on tapering dose prednisone+ Cephalosporin if okay with pulmonary
--- NOTE | 2018-12-11 11:45 | PN ---
Progress Note (short form) - Note Progress Note: PULMONARY SUBJECTIVE IMPROVEMENT WANTS TO CONTINUE TREATMENT AN OUTPATIENT VSS/afebrile Gen: NAD at rest Heart: RRR Lung: less rhonchi, right base rales Abd: soft, nontender Ext: no edema labs/meds/notes reviewed A/P Chronic Hypoxic Respiratory Failure/home 02 Acute COPD Exacerbation resolved RLL Pneumonia - change to oral prednisone - continue antibiotics at home - inhaled bronchodilators patient has neb at home - O2 to keep SpO2 >90%/patient has 02 at home - OK to discharge Maile BOLANOS MD
[2018-12-11 12:20] VITALS: BP 148/92; PULSE 85; TEMP 97.9
== END 2018-12-11 14:19 | disposition home or self-care (01) | DRG 193 ==
LOC: JER 10:59 → JERBED 13:09 → J8W 18:21
PROVIDERS: ADMIT Family Medicine; ATTEND Family Medicine
DX: J18.9 Pneumonia, unspecified organism (principal); J96.01 Acute respiratory failure with hypoxia; J44.0 Chronic obstructive pulmonary disease with (acute) lower respiratory infection; J44.1 Chronic obstructive pulmonary disease with (acute) exacerbation; J18.8 Other pneumonia, unspecified organism; E78.00 Pure hypercholesterolemia, unspecified; R00.0 Tachycardia, unspecified; J06.9 Acute upper respiratory infection, unspecified; R07.89 Other chest pain; M89.8X1 Other specified disorders of bone, shoulder; R79.89 Other specified abnormal findings of blood chemistry; Z87.442 Personal history of urinary calculi; Z87.891 Personal history of nicotine dependence; Z85.42 Personal history of malignant neoplasm of other parts of uterus
CPT/HCPCS: 36415; 71046-TC-FY; 71275-TC; 80053; 82550; 83880; 84484; 85025; 85027; 85379; 87899; 93005; 93010; 93306-TC; 94640; 99282-25

== ENCOUNTER 2020-12-28 13:03 | Inpatient (IN) | payer BC, OTHER ==
[2020-12-28] MEDS ORDERED: PROPOFOL 1,000,000 MCG/100 ML VIAL IVPB SCH (13:15)
[2020-12-28] MEDS ORDERED: SODIUM CHLORIDE 0.9% 500 ML INFUS.BAG IV ONE ×2 (13:37→16:22)
[2020-12-28] MEDS ORDERED: DEXMEDETOMIDINE HCL 200 MCG/2 ML IVPB ONE (13:40)
[2020-12-28] MEDS ORDERED: NOREPINEPHRINE BITARTRATE 4 MG/4 ML ML IV ONE ×2 (13:40→13:46)
[2020-12-28] MEDS ORDERED: MIDAZOLAM 100 MG in SODIUM CHLORIDE 100 ML IVPB SCH ×2 (13:45→14:45)
[2020-12-28] MEDS ORDERED: NOREPINEPHRINE BITARTRATE 8,000 MCG/500 ML BAG IVPB SCH (13:45)
[2020-12-28] MEDS ORDERED: DEXMEDETOMIDINE IN 0.9 % NACL 200 MCG/50 ML EACH IVPB SCH (13:45)
[2020-12-28 13:51] LABS: BASO % 0.2 % (0-2.0); EOS % 0.2 % (0-4.5); HEMATOCRIT 36.9 % (32.4-45.2); HEMOGLOBIN 12.1 GM/dL (10.7-15.3); LYMPH % 5.8 % (8-40); MCH 31.2 pg (25.7-33.7); MCHC 32.8 g/dl (32.0-36.0); MEAN CELL VOLUME 95.3 fl (80-96); MEAN PLT VOLUME 8.5 fl (7.5-11.1); MONO % 2.9 % (3.8-10.2); NEUT % 90.9 % (42.8-82.8); PLATELET COUNT 162 K/MM3 (134-434); RBC 3.87 M/mm3 (3.60-5.2); RDW 16.4 % (11.6-15.6)
[2020-12-28 13:57] LABS: INR 0.97 (0.83-1.09)
[2020-12-28] MEDS ORDERED: PIPERACILLIN/TAZOB 3.375 GM 3.375 GM in DEXTROSE 5%-WATER - 50 ML IVPB ONE (13:58)
[2020-12-28 14:00] LABS: ACTIVATED PTT 21.4 SECONDS (25.2-36.5); VENOUS BASE EXCESS 4.4 mmol/L (-2-2); VENOUS O2 SATURATION 99.8 % (70-80); VENOUS PCO2 44.2 mmHg (38-52); VENOUS PH 7.439 (7.310-7.410)
[2020-12-28] MEDS ORDERED: PIPERACILLIN/TAZOB 3.375 GM 3.375 GM/50 ML BAG IVPB ONE (14:06)
[2020-12-28 14:15] LABS: POTASSIUM 3.7 mmol/L (3.5-5.1)
[2020-12-28 14:20] LABS: ALBUMIN 2.8 g/dl (3.4-5.0); BLOOD UREA NITROGEN 32.3 mg/dL (7-18); CALCIUM 7.8 mg/dL (8.5-10.1)
[2020-12-28 14:25] LABS: BILIRUBIN,TOTAL 1.1 mg/dL (0.2-1); CREATININE 0.7 mg/dL (0.55-1.3); TOT PROT 5.4 g/dl (6.4-8.2)
[2020-12-28] MEDS ORDERED: MIDAZOLAM HCL 2 MG/2 ML SINGLE DOSE VIAL IVPUSH ONE (14:28)
[2020-12-28] MEDS ORDERED: MIDAZOLAM 100 MG/100 ML MG IVPB ONE (14:32)
[2020-12-28] MEDS: MIDAZOLAM 100 MG/100 ML MG IVPB SCH (15:22)
[2020-12-28 15:54] LABS: EPI CELLS >36 /uL (0-25.1); HYALINE CASTS 51 /uL (0-3.1); PH,URINE 6.5 (5.0-8.0); URINE APPEARANCE CLOUDY; URINE BACTERIA >9,000 /uL (0-1359); URINE BILIRUBIN NEGATIVE (NEGATIVE); URINE COLOR YELLOW; URINE GLUCOSE (UA) 1+ (NEGATIVE); URINE KETONE NEGATIVE (NEGATIVE); URINE LEUK ESTERASE TRACE (NEGATIVE); URINE NITRITE POSITIVE (NEGATIVE); URINE PROTEIN 2+ (NEGATIVE); URINE RBC 10 /uL (0-23.9); URINE WBC 20 /uL (0-25.8)
[2020-12-28 15:59] LABS: BILIRUBIN,DIRECT 0.4 mg/dL (0.0-0.2)
[2020-12-28] MEDS ORDERED: ALBUTEROL SO4 HFA INHALER IH PRN (16:44)
[2020-12-28] MEDS: DEXAMETHASONE SOD PHOSPHATE 10 MG/1 ML VIAL IVPUSH SCH (18:00)
[2020-12-28] MEDS ORDERED: DEXAMETHASONE SOD PHOSPHATE 10 MG/1 ML VIAL ONE (18:01)
[2020-12-28 19:04] LABS: MAGNESIUM 1.6 mg/dL (1.8-2.4)
[2020-12-28 19:58] LABS: MAGNESIUM 1.5 mg/dL (1.8-2.4)
[2020-12-28] MEDS ORDERED: PANTOPRAZOLE SODIUM 40 MG/100 ML BAG IVPB ONE (20:42)
[2020-12-28] MEDS: FAMOTIDINE 20 MG/50 ML IVPB 20 MG/50 ML MG IVPB SCH (20:52)
[2020-12-28] MEDS ORDERED: DEXMEDETOMIDINE IN 0.9 % NACL 400 MCG/100 ML VIAL IVPB SCH (21:29)
[2020-12-29] MEDS ORDERED: DEXTROSE 50%-WATER - 25 GM/50 ML VIAL IVPUSH ONE ×2 (02:07)
[2020-12-29] MEDS ORDERED: ALBUTEROL SO4 2.5/IPRATROPIUM 0.5 INH SOL 3 ML VIAL.NEB. NEB PRN (07:09)
[2020-12-29 07:45] LABS: BASO % 0.5 % (0-2.0); HEMATOCRIT 39.7 % (32.4-45.2); HEMOGLOBIN 12.8 GM/dL (10.7-15.3); LYMPH % 8.7 % (8-40); MCHC 32.3 g/dl (32.0-36.0); MEAN CELL VOLUME 95.8 fl (80-96); MEAN PLT VOLUME 9.3 fl (7.5-11.1); MONO % 4.5 % (3.8-10.2); NEUT % 86.3 % (42.8-82.8); PLATELET COUNT 146 K/MM3 (134-434); RBC 4.15 M/mm3 (3.60-5.2); RDW 16.6 % (11.6-15.6); WHITE BLOOD COUNT 9.2 K/mm3 (4.0-10.0)
[2020-12-29 07:51] LABS: POTASSIUM 4.4 mmol/L (3.5-5.1)
[2020-12-29 07:59] LABS: BILIRUBIN,TOTAL 1.1 mg/dL (0.2-1)
[2020-12-29 08:00] LABS: TOT PROT 4.8 g/dl (6.4-8.2)
[2020-12-29 08:05] LABS: ALBUMIN 2.5 g/dl (3.4-5.0); BLOOD UREA NITROGEN 34.9 mg/dL (7-18); CALCIUM 7.3 mg/dL (8.5-10.1); CREATININE 0.6 mg/dL (0.55-1.3); MAGNESIUM 1.5 mg/dL (1.8-2.4)
[2020-12-29 08:08] LABS: PHOSPHOROUS 2.9 mg/dL (2.5-4.9)
[2020-12-29] MEDS ORDERED: MAGNESIUM SULF 50% (8.12 MEQ/2 ML-1 GM VIAL) IVPB ONE (08:17)
[2020-12-29] MEDS ORDERED: AZITHROMYCIN IVPB 500 MG/250 ML BAG IVPB SCH (10:00)
[2020-12-29] MEDS: FAMOTIDINE 20 MG/50 ML IVPB 20 MG/50 ML MG IVPB SCH (10:30)
[2020-12-29] MEDS: DEXAMETHASONE SOD PHOSPHATE 10 MG/1 ML VIAL IVPUSH SCH (10:34)
[2020-12-29] MEDS ORDERED: DEXTROSE 5%-WATER - 50 ML IVPB ONE (10:46)
[2020-12-29] MEDS ORDERED: cefTRIAXone SODIUM 1 GM VIAL ONE (10:46)
[2020-12-29] MEDS: CEFTRIAXONE 1 GM in DEXTROSE 5%-WATER - 50 ML IVPB SCH (10:46)
[2020-12-29] MEDS ORDERED: ALBUTEROL SO4 HFA INHALER IH SCH (12:30)
[2020-12-29] MEDS ORDERED: NYSTATIN 100,000 UNIT/GM TOPICAL CREAM 15 GM TUBE TP SCH (12:45)
[2020-12-29] MEDS ORDERED: DOPAMINE HCL 400,000 MCG in SODIUM CHLORIDE 240 ML IV SCH (13:30)
[2020-12-29] MEDS ORDERED: SODIUM CHLORIDE 1,000 ML IV STA (13:34)
[2020-12-29] MEDS ORDERED: DOPAMINE 400 MG/D5W - 400,000 MCG/250 ML INFUS.BAG IVPB ONE (14:12)
[2020-12-29] MEDS ORDERED: VASOPRESSIN 20 UNITS/ML VIAL IV ONE (14:47)
[2020-12-29] MEDS: MIDAZOLAM 100 MG/100 ML MG IVPB SCH (15:32)
[2020-12-29] MEDS: ALBUTEROL SO4 2.5/IPRATROPIUM 0.5 INH SOL 3 ML VIAL.NEB. NEB SCH ×2 (15:50→20:20)
[2020-12-29] MEDS: VASOPRESSIN 40 UNITS in SODIUM CHLORIDE 98 ML IVPB SCH (16:00)
[2020-12-29] MEDS ORDERED: ENOXAPARIN NA (PORCINE) 80 MG/0.8 ML DISP.SYRIN SQ ONE (16:40)
[2020-12-29] MEDS: methylPREDNISolone NA SUCC 40 MG/1 ML VIAL IVPUSH SCH (18:31)
[2020-12-30] MEDS: MIDAZOLAM HCL 5 MG/1 ML Single Dose Vial IVPUSH PRN ×3 (01:49→22:13)
[2020-12-30] MEDS: methylPREDNISolone NA SUCC 40 MG/1 ML VIAL IVPUSH SCH ×3 (01:49→17:03)
[2020-12-30] MEDS: SODIUM CHLORIDE 1,000 ML IV SCH ×2 (01:58→18:37)
[2020-12-30 06:51] LABS: BASO % 0.2 % (0-2.0); HEMATOCRIT 38.8 % (32.4-45.2); HEMOGLOBIN 12.7 GM/dL (10.7-15.3); LYMPH % 4.4 % (8-40); MCH 30.7 pg (25.7-33.7); MCHC 32.6 g/dl (32.0-36.0); MEAN PLT VOLUME 8.9 fl (7.5-11.1); NEUT % 92.4 % (42.8-82.8); PLATELET COUNT 157 K/MM3 (134-434); RBC 4.13 M/mm3 (3.60-5.2); RDW 16.2 % (11.6-15.6); WHITE BLOOD COUNT 12.2 K/mm3 (4.0-10.0)
[2020-12-30 07:14] LABS: POTASSIUM 4.2 mmol/L (3.5-5.1)
[2020-12-30 07:18] LABS: ALBUMIN 2.4 g/dl (3.4-5.0); BLOOD UREA NITROGEN 37.5 mg/dL (7-18)
[2020-12-30 07:19] LABS: CALCIUM 7.5 mg/dL (8.5-10.1)
[2020-12-30 07:21] LABS: CREATININE 0.7 mg/dL (0.55-1.3)
[2020-12-30 07:23] LABS: BILIRUBIN,TOTAL 0.7 mg/dL (0.2-1); TOT PROT 4.8 g/dl (6.4-8.2)
[2020-12-30] MEDS: ALBUTEROL SO4 2.5/IPRATROPIUM 0.5 INH SOL 3 ML VIAL.NEB. NEB SCH ×4 (08:45→20:30)
[2020-12-30 09:18] LABS: ANISOCYTOSIS 0; HELMET CELLS 0; HOWELL-JOLLY BODIES 0; MACROCYTOSIS 0; OVALOCYTE 0; PLATELET ESTIMATE DECREASED; ROULEAU 0; SICKELED CELLS 0; TARGET CELLS 0; TEAR DROP CELLS 0; TOXIC GRANULATION 0
[2020-12-30] MEDS ORDERED: cefTRIAXone SODIUM 1 GM VIAL ONE (09:52)
[2020-12-30] MEDS ORDERED: DEXTROSE 5%-WATER - 50 ML IVPB ONE (09:52)
[2020-12-30] MEDS: CEFTRIAXONE 1 GM in DEXTROSE 5%-WATER - 50 ML IVPB SCH (09:58)
[2020-12-30] MEDS ORDERED: AZITHROMYCIN IVPB 500 MG/250 ML BAG IVPB SCH (10:00)
[2020-12-30] MEDS: ENOXAPARIN NA (PORCINE) 80 MG/0.8 ML DISP.SYRIN SQ SCH ×2 (10:02→21:57)
[2020-12-30] MEDS: VASOPRESSIN 40 UNITS in SODIUM CHLORIDE 98 ML IVPB SCH ×2 (10:03→16:00)
[2020-12-30] MEDS: FAMOTIDINE 20 MG/50 ML IVPB 20 MG/50 ML MG IVPB SCH (14:45)
[2020-12-31] MEDS: MIDAZOLAM HCL 5 MG/1 ML Single Dose Vial IVPUSH PRN ×3 (00:54→10:30)
[2020-12-31] MEDS: methylPREDNISolone NA SUCC 40 MG/1 ML VIAL IVPUSH SCH ×3 (03:32→18:22)
[2020-12-31 07:15] LABS: POTASSIUM 3.9 mmol/L (3.5-5.1)
[2020-12-31 07:23] LABS: ALBUMIN 2.4 g/dl (3.4-5.0); CALCIUM 7.2 mg/dL (8.5-10.1)
[2020-12-31 07:24] LABS: BLOOD UREA NITROGEN 35.3 mg/dL (7-18); MAGNESIUM 1.9 mg/dL (1.8-2.4)
[2020-12-31 07:26] LABS: CREATININE 0.4 mg/dL (0.55-1.3); PHOSPHOROUS 2.1 mg/dL (2.5-4.9)
[2020-12-31 07:28] LABS: TOT PROT 4.7 g/dl (6.4-8.2)
[2020-12-31] MEDS: ALBUTEROL SO4 2.5/IPRATROPIUM 0.5 INH SOL 3 ML VIAL.NEB. NEB SCH ×4 (07:55→20:52)
[2020-12-31] MEDS: SODIUM CHLORIDE 1,000 ML IV SCH ×2 (08:02→18:45)
[2020-12-31 09:30] LABS: BASO % 0.2 % (0-2.0); HEMATOCRIT 32.8 % (32.4-45.2); HEMOGLOBIN 10.8 GM/dL (10.7-15.3); LYMPH % 2.4 % (8-40); MEAN CELL VOLUME 93.8 fl (80-96); MEAN PLT VOLUME 8.8 fl (7.5-11.1); MONO % 3.3 % (3.8-10.2); NEUT % 94.1 % (42.8-82.8); PLATELET COUNT 140 K/MM3 (134-434); RDW 16.3 % (11.6-15.6); WHITE BLOOD COUNT 9.1 K/mm3 (4.0-10.0)
[2020-12-31 09:58] LABS: ANISOCYTOSIS 0; MACROCYTOSIS 0; PLATELET ESTIMATE DECREASED
[2020-12-31] MEDS ORDERED: cefTRIAXone SODIUM 1 GM VIAL ONE (10:21)
[2020-12-31] MEDS ORDERED: DEXTROSE 5%-WATER - 50 ML IVPB ONE (10:22)
[2020-12-31] MEDS: FAMOTIDINE 20 MG/50 ML IVPB 20 MG/50 ML MG IVPB SCH (10:29)
[2020-12-31] MEDS: CEFTRIAXONE 1 GM in DEXTROSE 5%-WATER - 50 ML IVPB SCH (10:29)
[2020-12-31] MEDS: ENOXAPARIN NA (PORCINE) 80 MG/0.8 ML DISP.SYRIN SQ SCH ×2 (10:29→21:52)
[2020-12-31] MEDS: VASOPRESSIN 40 UNITS in SODIUM CHLORIDE 98 ML IVPB SCH ×2 (14:26→16:00)
[2021-01-01] MEDS: methylPREDNISolone NA SUCC 40 MG/1 ML VIAL IVPUSH SCH ×2 (01:46→10:20)
[2021-01-01] MEDS: ALBUTEROL SO4 2.5/IPRATROPIUM 0.5 INH SOL 3 ML VIAL.NEB. NEB SCH ×3 (07:45→15:50)
[2021-01-01 10:11] LABS: HEMATOCRIT 36.3 % (32.4-45.2); HEMOGLOBIN 11.7 GM/dL (10.7-15.3); MCHC 32.2 g/dl (32.0-36.0); MEAN CELL VOLUME 96.3 fl (80-96); MEAN PLT VOLUME 8.6 fl (7.5-11.1); MONO % 3.6 % (3.8-10.2); NEUT % 95.4 % (42.8-82.8); PLATELET COUNT 141 K/MM3 (134-434); RBC 3.76 M/mm3 (3.60-5.2); RDW 16.6 % (11.6-15.6)
[2021-01-01] MEDS: FAMOTIDINE 20 MG/50 ML IVPB 20 MG/50 ML MG IVPB SCH (10:20)
[2021-01-01] MEDS: ENOXAPARIN NA (PORCINE) 80 MG/0.8 ML DISP.SYRIN SQ SCH ×2 (10:20→21:32)
[2021-01-01] MEDS ORDERED: cefTRIAXone SODIUM 1 GM VIAL ONE (10:21)
[2021-01-01] MEDS ORDERED: DEXTROSE 5%-WATER - 50 ML IVPB ONE (10:21)
[2021-01-01 10:23] LABS: POTASSIUM 4.5 mmol/L (3.5-5.1)
[2021-01-01] MEDS: CEFTRIAXONE 1 GM in DEXTROSE 5%-WATER - 50 ML IVPB SCH (10:23)
[2021-01-01] MEDS ORDERED: LACTATED RINGERS SOLUTION 1000 ML INFUS.BAG IV ONE (10:47)
[2021-01-01 11:52] LABS: ALBUMIN 2.7 g/dl (3.4-5.0)
[2021-01-01 11:53] LABS: CALCIUM 7.6 mg/dL (8.5-10.1)
[2021-01-01 11:54] LABS: BLOOD UREA NITROGEN 36.5 mg/dL (7-18); MAGNESIUM 2.2 mg/dL (1.8-2.4)
[2021-01-01 11:56] LABS: CREATININE 0.6 mg/dL (0.55-1.3)
[2021-01-01 11:57] LABS: PHOSPHOROUS 2.9 mg/dL (2.5-4.9)
[2021-01-01 11:58] LABS: BILIRUBIN,TOTAL 0.4 mg/dL (0.2-1); TOT PROT 5.2 g/dl (6.4-8.2)
[2021-01-01 12:00] LABS: ANISOCYTOSIS 0; HELMET CELLS 0; HOWELL-JOLLY BODIES 0; MACROCYTOSIS 0; OVALOCYTE 0; PLATELET ESTIMATE DECREASED; ROULEAU 0; SICKELED CELLS 0; TARGET CELLS 0; TEAR DROP CELLS 0; TOXIC GRANULATION 0
[2021-01-01] MEDS ORDERED: ALBUTEROL SO4 2.5/IPRATROPIUM 0.5 INH SOL 3 ML VIAL.NEB. NEB PRN (16:37)
[2021-01-01] MEDS ORDERED: ENOXAPARIN NA (PORCINE) 80 MG/0.8 ML DISP.SYRIN SQ SCH (17:30)
[2021-01-01] MEDS ORDERED: SODIUM CHLORIDE 1,000 ML IV SCH (17:31)
[2021-01-01] MEDS ORDERED: ACETAMINOPHEN 325 MG TABLET (FP) PO PRN (17:32)
[2021-01-01] MEDS ORDERED: FUROSEMIDE 40 MG/4 ML INJECTABLE VIAL IVPUSH ONE (17:34)
[2021-01-01] MEDS ORDERED: ALBUTEROL SO4 2.5/IPRATROPIUM 0.5 INH SOL 3 ML VIAL.NEB. NEB SCH (17:45)
[2021-01-01] MEDS: VASOPRESSIN 40 UNITS in SODIUM CHLORIDE 98 ML IVPB SCH (17:59)
[2021-01-02 07:09] LABS: BASO % 0.4 % (0-2.0); HEMATOCRIT 35.8 % (32.4-45.2); HEMOGLOBIN 11.2 GM/dL (10.7-15.3); LYMPH % 1.6 % (8-40); MCH 30.4 pg (25.7-33.7); MCHC 31.4 g/dl (32.0-36.0); MEAN CELL VOLUME 97.1 fl (80-96); MEAN PLT VOLUME 9.3 fl (7.5-11.1); MONO % 5.5 % (3.8-10.2); NEUT % 92.5 % (42.8-82.8); PLATELET COUNT 123 K/MM3 (134-434); RBC 3.69 M/mm3 (3.60-5.2); RDW 16.6 % (11.6-15.6); WHITE BLOOD COUNT 14.3 K/mm3 (4.0-10.0)
[2021-01-02 07:29] LABS: POTASSIUM 4.5 mmol/L (3.5-5.1)
[2021-01-02 07:37] LABS: ALBUMIN 2.8 g/dl (3.4-5.0); BLOOD UREA NITROGEN 39.7 mg/dL (7-18); CALCIUM 7.9 mg/dL (8.5-10.1); MAGNESIUM 2.2 mg/dL (1.8-2.4)
[2021-01-02 07:39] LABS: BILIRUBIN,TOTAL 0.5 mg/dL (0.2-1); TOT PROT 5.3 g/dl (6.4-8.2)
[2021-01-02 07:40] LABS: CREATININE 0.6 mg/dL (0.55-1.3); PHOSPHOROUS 2.1 mg/dL (2.5-4.9)
[2021-01-02] MEDS: ALBUTEROL SO4 2.5/IPRATROPIUM 0.5 INH SOL 3 ML VIAL.NEB. NEB SCH ×2 (08:05→20:30)
[2021-01-02 09:46] LABS: ANISOCYTOSIS 1+; MACROCYTOSIS 0; PLATELET ESTIMATE DECREASED
[2021-01-02] MEDS: FAMOTIDINE 20 MG/50 ML IVPB 20 MG/50 ML MG IVPB SCH (10:05)
[2021-01-02] MEDS: ENOXAPARIN NA (PORCINE) 80 MG/0.8 ML DISP.SYRIN SQ SCH ×2 (10:05→21:30)
[2021-01-02] MEDS ORDERED: cefTRIAXone SODIUM 1 GM VIAL ONE (10:09)
[2021-01-02] MEDS ORDERED: DEXTROSE 5%-WATER - 50 ML IVPB ONE (10:09)
[2021-01-02] MEDS: CEFTRIAXONE 1 GM in DEXTROSE 5%-WATER - 50 ML IVPB SCH (10:11)
[2021-01-02] MEDS ORDERED: FUROSEMIDE 40 MG/4 ML INJECTABLE VIAL IVPUSH ONE (10:52)
[2021-01-02] MEDS ORDERED: METOPROLOL TARTRATE 5 MG/5 ML VIAL IVPUSH ONE (15:53)
[2021-01-02] MEDS ORDERED: METOPROLOL TARTRATE 5 MG/5 ML VIAL ONE (15:56)
[2021-01-02] MEDS ORDERED: METOPROLOL TARTRATE 5 MG/5 ML VIAL IVPUSH PRN ×2 (16:04→16:44)
[2021-01-02] MEDS: VASOPRESSIN 40 UNITS in SODIUM CHLORIDE 98 ML IVPB SCH (16:20)
[2021-01-03] MEDS ORDERED: DIGOXIN 0.5 MG/2 ML AMPUL IVPUSH ONE ×2 (01:12→01:32)
[2021-01-03] MEDS ORDERED: VASOPRESSIN 40 UNITS in SODIUM CHLORIDE 98 ML IVPB SCH (01:30)
[2021-01-03] MEDS ORDERED: AMIODARONE HCL 150 MG/3 ML VIAL IVPUSH ONE (03:33)
[2021-01-03] MEDS ORDERED: ALBUTEROL SO4 0.083% IH SOL 2.5 MG/3 ML VIAL.NEB. NEB ONE (03:40)
[2021-01-03] MEDS ORDERED: AMIODARONE IN DEXTROSE,ISO-OSM 150 MG/100 ML BAG ONE (03:48)
[2021-01-03] MEDS ORDERED: AMIODARONE IN DEXTROSE,ISO-OSM 150 MG/100 ML BAG IVPB ONE (03:54)
[2021-01-03] MEDS: AMIODARONE HCL INJECTION 150 MG in DEXTROSE 5%-WATER - 100 ML IVPB ONE ×2 (03:56→04:24)
[2021-01-03] MEDS: ALBUTEROL SO4 2.5/IPRATROPIUM 0.5 INH SOL 3 ML VIAL.NEB. NEB SCH ×2 (04:10→08:06)
[2021-01-03] MEDS ORDERED: AMIODARONE IN DEXTROSE,ISO-OSM 360 MG/200 ML BAG IVPB ONE (04:12)
[2021-01-03] MEDS ORDERED: AMIODARONE IN DEXTROSE,ISO-OSM 360 MG/200 ML BAG ONE (04:14)
[2021-01-03 04:44] LABS: ARTERIAL BLD GAS O2 SATURATION 92.6 mmHg (95-98); ARTERIAL BLOOD GAS BASE EXCESS 5.8 mmol/L (-2-2); ARTERIAL BLOOD GAS PO2 75.7 mmHg (80-100)
[2021-01-03 04:45] LABS: ALLENS TEST POSITIVE; VENT MODE S/T; VENT RATE 12
[2021-01-03 06:59] LABS: ARTERIAL BLOOD GAS BASE EXCESS 5.8 mmol/L (-2-2); ARTERIAL BLOOD GAS pH 7.379 (7.350-7.450)
[2021-01-03 07:00] LABS: ALLENS TEST POSITIVE; VENT MODE S/T; VENT RATE 14
[2021-01-03 07:47] LABS: BASO % 0.2 % (0-2.0); HEMATOCRIT 30.1 % (32.4-45.2); HEMOGLOBIN 9.8 GM/dL (10.7-15.3); LYMPH % 2.4 % (8-40); MCH 30.8 pg (25.7-33.7); MCHC 32.4 g/dl (32.0-36.0); MEAN CELL VOLUME 95.3 fl (80-96); MEAN PLT VOLUME 9.1 fl (7.5-11.1); NEUT % 93.4 % (42.8-82.8); PLATELET COUNT 94 K/MM3 (134-434); RBC 3.16 M/mm3 (3.60-5.2); RDW 16.2 % (11.6-15.6); WHITE BLOOD COUNT 14.7 K/mm3 (4.0-10.0)
[2021-01-03 08:02] LABS: POTASSIUM 4.2 mmol/L (3.5-5.1)
[2021-01-03 08:03] LABS: CALCIUM 7.5 mg/dL (8.5-10.1)
[2021-01-03 08:04] LABS: BLOOD UREA NITROGEN 46.2 mg/dL (7-18)
[2021-01-03 08:07] LABS: CREATININE 0.6 mg/dL (0.55-1.3)
[2021-01-03] MEDS ORDERED: cefTRIAXone SODIUM 1 GM VIAL ONE (08:09)
[2021-01-03] MEDS ORDERED: DEXTROSE 5%-WATER - 50 ML IVPB ONE (08:09)
[2021-01-03 08:12] LABS: N-TERMINAL BNP 5811.2 pg/ml (5-450)
[2021-01-03 08:32] LABS: ANISOCYTOSIS 1+; MACROCYTOSIS 0; PLATELET ESTIMATE DECREASED
[2021-01-03] MEDS: ENOXAPARIN NA (PORCINE) 80 MG/0.8 ML DISP.SYRIN SQ SCH (10:03)
[2021-01-03] MEDS: CEFTRIAXONE 1 GM in DEXTROSE 5%-WATER - 50 ML IVPB SCH (10:03)
[2021-01-03] MEDS ORDERED: AMIODARONE HCL INJECTION 450 MG in DEXTROSE 5%-WATER - 241 ML IVPB SCH (10:45)
[2021-01-03 12:27] VITALS: PULSE 92
[2021-01-03 13:38] VITALS: BP 93/62; TEMP 97.3
[2021-01-03 15:10] VITALS: BMI 23.3
[2021-01-03] MEDS ORDERED: MORPHINE SULFATE/0.9% NACL/PF 100 MG/100 ML BAG IVPB SCH (15:15)
[2021-01-03] MEDS ORDERED: SCOPOLAMINE HYDROBROMIDE 1 PATCH PATCH.TD72 TD SCH (16:00)
== END 2021-01-03 18:53 | disposition expired | DRG 871 ==
LOC: JER 13:03 → JERBED 15:04 → JICU 21:20
PROVIDERS: ADMIT Family Medicine; ATTEND Family Medicine
PROC: 5A1945Z Respiratory Ventilation, 24-96 Consecutive Hours (ICD-10-PCS; principal; 2020-12-28)
DX: A41.89 Other specified sepsis (principal); R65.21 Severe sepsis with septic shock; J96.01 Acute respiratory failure with hypoxia; J18.9 Pneumonia, unspecified organism; N39.0 Urinary tract infection, site not specified; I82.432 Acute embolism and thrombosis of left popliteal vein; E87.0 Hyperosmolality and hypernatremia; J44.1 Chronic obstructive pulmonary disease with (acute) exacerbation; I48.91 Unspecified atrial fibrillation; R79.89 Other specified abnormal findings of blood chemistry; B96.1 Klebsiella pneumoniae [K. pneumoniae] as the cause of diseases classified elsewhere; Z66 Do not resuscitate
CPT/HCPCS: 36415; 36600; 71045-TC-FY; 80048; 80053; 81003; 82248; 82550; 82728; 82803; 82962; 83605; 83615; 83735; 83880; 84100; 84484; 85025; 85379; 85610; 85730; 86140; 86900; 87040; 87086; 87186; 87804; 87899; 93005; 93010; 93306-TC; 93970-TC; 94002; 94640; 94660; 99291; C9803; J0282; J1100; U0003